=== PATIENT | male | born 1985 | race Caucasian/White ===

== ENCOUNTER 2018-08-08 09:57 | Day surgery (SDC) | payer OTHER ==
--- NOTE | 2018-08-05 12:09 | PREOPHP ---
DATE OF SURGERY: 08/08/2018 Scheduled for outpatient surgery 08/08/2018. HISTORY OF PRESENT ILLNESS: The patient is a 32-year-old male in overall good health with a 3-year history of a left groin bulge, which is gradually increasing in size and causing intermittent pain. He also has a right groin bulge. He has no gastrointestinal or genitourinary symptoms. He is scheduled to undergo open repair of bilateral inguinal hernia with mesh. PAST MEDICAL HISTORY: MEDICATIONS: None. ALLERGIES: NONE. OPERATIONS: [place] teeth. PHYSICAL EXAMINATION: GENERAL: Well-developed, well-nourished, 5 foot 6 inches, 141 pounds. VITAL SIGNS: Within normal limits. HEENT: Within normal limits. LUNGS: Clear. HEART: Regular rhythm. BREASTS: Without masses. ABDOMEN: Soft with an extensive tattoo. There are bilateral reducible inguinal herniae, left more prominent than the right. Testes and scrotum within normal limits. Femoral pulses 3+ with no inguinal lymphadenopathy. EXTREMITIES: Without edema. NEUROLOGIC: Physiologic. ASSESSMENT AND PLAN: Bilateral inguinal hernia. PLAN: I have had a full discussion with the patient regarding the nature of his condition, the nature of the surgery, indications, alternatives, options and risks including bleeding, infection, recurrence despite use of mesh, neuritis or neuralgia, testicular or scrotal swelling or other abnormality, etc. All questions have been answered. He understands and agrees to proceed with open repair of bilateral inguinal hernia with mesh. Dictated By: MARILYNN WAGNER/ERIKA Conf#: [id number] [facility]#: [id number] FADY
[2018-08-08] VITALS (14 sets, daily range): BP systolic 108–125; BP diastolic 71–82; PULSE 62–76; RESP 13–25; Ht 167.6 cm; Wt 64.0 kg
[~2018-08-08] VITALS: Ht 167.6 cm; Wt 64.0 kg
[~2018-08-08 09:57] MED LIST: CEFAZOLIN 1 GM/50 ML (PMX) 50 ML IVPB ONE; SOD CHLORIDE 0.9% 1,000 ML IV SCH
--- NOTE | 2018-08-08 11:47 | HPN ---
Date/Time of Note Date/Time of Note DATE: 08/08/18 TIME: 11:47 Interval H&P Admission Note Pt. seen H&P reviewed: No system changes MARILYNN LEACH August 08, 2018 11:47
[2018-08-08] MEDS ORDERED: LIDOCAINE 1% (MPF) 30 ML INJ ONE (12:03)
[2018-08-08] MEDS ORDERED: BUPIVACAINE 0.25% (MPF) 30 ML INJ ONE (12:03)
[2018-08-08] MEDS ORDERED: POLYMYXIN/BACITRACIN 1L IRRIG ONE (12:03)
--- NOTE | 2018-08-08 12:49 | PREAC ---
Date/Time of Note Date/Time of Note DATE: 08/08/18 TIME: 12:46 Anesthesia Eval and Record Evaluation Time Pre-Procedure Interview DATE: 08/08/18 TIME: 12:46 Age 32 Sex male NPO: 8 hrs Preoperative diagnosis bilateral inguinal hernia Planned procedure open repair of bilateral inguinal hernias with mesh Past Medical History Past Medical History: Includes Recreational drugs: Marijuana (daily), Other (etoh social regular) Surgery & Anesthesia Issues No known issue Meds Anticoagulation: No Beta Ryan within 24 hr: No Reason Beta Ryan not given: Pt. not on B-Ryan No Active Prescriptions or Reported Meds Current Medications Sodium Chloride 1,000 ml @ 75 mls/hr [id number] IV ; Start 08/08/18 at 06:00; Stop 08/08/18 at 18:00 Meds reviewed: Yes Allergies Coded Allergies: No Known Drug Allergy (Verified Allergy, Unknown, 08/08/18) Allergies Reviewed: Yes Labs/Studies Labs Reviewed: Reviewed by anesthesiologist Result Diagram: 08/08/18 1210 Laboratory Tests 08/08/18 12:10 test: N/A Pre-procedure Exam Last vitals Vital Signs Date Temp Pulse Resp B/P (MAP) Pulse Ox O2 O2 Flow FiO2 Time Delivery Rate 08/08/18 97.8 63 16 114/82 99 Room Air 12:19 (93) Airway: Adequate mouth opening, Adequate thyromental dist Mallampati: Mallampati II Teeth: Normal Lung: Normal Heart: Normal Anticipated Difficutly with IV: Anticipate Difficult IV Access ASA Physical Status ASA physical status: 2 Emergency: None Planned Anesthetic General/MAC: LMA Planned Pain Management Parenteral pain med, Local by surgeon Pre-operative Attestations Prior to commencing anesthesia and surgery, the patient was re-evaluated, there was verification of: *The patient's identity *The results of appropriate recent lab work and preoperative vital signs *The above evaluation not changing prior to induction *Anesthetic plan, risk benefits, alternative and complications discussed with patient/family; questions answered; patient/family understands, accepts and wishes to proceed. JOSE HART CRNA August 08, 2018 12:49
[2018-08-08] MEDS ORDERED: LIDOCAINE 2% (SDV) 5 ML INJ ONE (12:58)
[2018-08-08] MEDS ORDERED: PROPOFOL 20 ML ONE ×2 (12:58→13:18)
[2018-08-08] MEDS ORDERED: FENTAnyl 50 MCG/ML VIAL ONE ×2 (12:59→13:53)
[2018-08-08] MEDS ORDERED: CEFAZOLIN 1 GM INJ ONE (13:18)
[2018-08-08] MEDS ORDERED: DEXAMETHASONE 4 MG/ML 5 ML INJ ONE (13:18)
[2018-08-08] MEDS ORDERED: ONDANSETRON 4 MG INJ ONE (13:18)
[2018-08-08] MEDS ORDERED: FAMOTIDINE 20 MG INJ ONE (13:18)
[2018-08-08] MEDS ORDERED: BUPIVACAINE 0.5% (SDV) 30 ML INJ ONE (13:22)
[2018-08-08] MEDS ORDERED: ROCURONIUM 50 MG INJ ONE (13:29)
[2018-08-08] MEDS ORDERED: MEPERIDINE 25 MG INJ IV PRN (14:00)
[2018-08-08] MEDS ORDERED: FENTAnyl 50 MCG/ML VIAL IV PRN (14:00)
[2018-08-08] MEDS ORDERED: OXYCODONE/ACETAMINOPHEN (5/325) TAB PO PRN ×2 (14:00)
[2018-08-08] MEDS ORDERED: HYDROmorphONE 1 MG/5 ML IV SYRINGE IV PRN ×2 (14:00)
[2018-08-08] MEDS ORDERED: ONDANSETRON 4 MG INJ IV PRN (14:00)
[2018-08-08] MEDS ORDERED: GLYCOPYRROLATE 0.4 MG INJ ONE (14:47)
[2018-08-08] MEDS ORDERED: NEOSTIGMINE 3 MG/3 ML SYRINGE ONE (14:47)
[2018-08-08] MEDS ORDERED: KETOROLAC 30 MG INJ ONE (14:52)
--- NOTE | 2018-08-08 15:05 | SIPON ---
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
--- NOTE | 2018-08-08 15:12 | PAC ---
Date/Time of Note Date/Time of Note DATE: 08/08/18 TIME: 15:10 Post-Anesthesia Notes Post-Anesthesia Note Last documented vital signs Vital Signs Date Temp Pulse Resp B/P (MAP) Pulse Ox O2 O2 Flow FiO2 Time Delivery Rate 08/08/18 98.4 73 12 123/64 100 6L FM 15:07 Activity: WNL Respiratory function: WNL Cardiovascular function: WNL Mental status: Baseline Pain reasonably controlled: Yes Hydration appropriate: Yes Nausea/Vomiting absent: Yes JOSE HART CRNA August 08, 2018 15:12
--- NOTE | 2018-08-08 15:32 | OPR ---
DATE OF OPERATION: 08/08/2018 SURGEON: Marilynn Burdick MD SHIPS OR BARGES LOADER: None. ANESTHESIOLOGIST: Ching SUTHERLAND. ANESTHESIA: General. PREOPERATIVE DIAGNOSIS: Bilateral inguinal hernia. POSTOPERATIVE DIAGNOSES: 1. Left indirect with secondary direct inguinal hernia. 2. Right direct inguinal hernia. OPERATION PERFORMED: Open repair of bilateral inguinal hernia with Prolene mesh. DESCRIPTION OF PROCEDURE: The patient was taken to the operating room and under general anesthesia, with sequential compression device stockings in place, he was prepped and draped in the usual fashion . Attention was first directed to the symptomatic left inguinal hernia. A transverse curvilinear in cision was made, achieving hemostasis with cautery and opening the external oblique aponeurosis throu gh the external ring, preserving the ilioinguinal nerve. The spermatic cord was quite bulky and was mobilized at the pubic tubercle and elevated to the internal ring. There was also failure of the ramy or of the inguinal canal representing a secondary direct inguinal hernia. The indirect inguinal annie ia sac was mobilized and a high circumferential dissection well into the internal ring was performed and the hernia reduced. Adhesions of the direct inguinal hernia were taken down with cautery. The r epair was accomplished by taking a piece of Prolene mesh, cut and tapered appropriately, soaked in an tibiotic solution, measuring approximately 5 x 9 cm. First, the inferior edge of the mesh was suture d to the shelving edge of the inguinal ligament starting at pubic tubercle and extending lateral to t he internal ring with continuous 2-0 Prolene. Then, the lateral aspect of the mesh was split longitu dinally so the tails could encircle the cord. Then, the medial-superior edge of the mesh was sutured to the transversus tendon again starting at pubic tubercle and extending lateral to the internal rin g with continuous 2-0 Prolene. One suture was taken just lateral to the internal ring to tack the patel perior tail over the inferior tail to the inguinal ligament. The newly created internal ring and mes h did not constrict the cord. The repair appeared very satisfactory without tension. The field was irrigated with antibiotic solution. Hemostasis was secure. The external oblique aponeurosis was nia sed over the spermatic cord with continuous 2-0 Vicryl. Nadya's fascia was closed with interrupted 3-0 Vicryl, as was the subcutaneous tissues and the skin closed with continuous 4-0 Monocryl subcutic ular suture. Attention was then directed to the right side where the same procedure was carried out. There was no indirect inguinal hernia sac but a much larger direct inguinal hernia representing yolis lure of the entire floor of the inguinal canal. The repair was accomplished in the same fashion was closure. After completing the procedure, a tincture of benzoin and 1/2-inch Steri-Strips were applie d to both incisions followed by dry sterile dressing. Final sponge and needle counts were correct at the end of the procedure. Both testes were readily retracted well down into the scrotum. The patie nt tolerated the procedure well and left the operating room in good condition. Dictated By: MARILYNN WAGNER/ERIKA Conf#: [id number] [facility]#: [id number]
== END 2018-08-08 17:56 | disposition home or self-care (01) ==
LOC: SDS 09:57
PROVIDERS: ATTEND Surgery
DX: K40.20 Bilateral inguinal hernia, without obstruction or gangrene, not specified as recurrent (principal)
CPT/HCPCS: 49505; 80053; 85025; 85610; 85730; J0690; J1100; J1170; J1885; J2405; J2710; J3010